=== PATIENT | female | born 1955 | race Caucasian/White ===

== ENCOUNTER 2018-07-28 23:34 | Emergency (ER) | payer OTHER ==
[2018-07-28 23:41] VITALS: BP 165/76; PULSE 99; TEMP 97.7; BMI 22.7
--- NOTE | 2018-07-28 23:57 | PDOC ---
History of Present Illness - General Chief Complaint: Pain Stated Complaint: PAIN CHEST/NECK Time Seen by Provider: 07/28/18 23:36 - History of Present Illness Initial Comments: 07/29/18 00:11 This otherwise healthy(except for osteoporosis) 63-year-old woman presents with few hour history of intermittent, sharp ("stabbing") pain of right and left anterior chest. Pain worse with deep breathing but no sensation of shortness of breath noted. No cough/fever noted. Patient states that she was sitting , watching television during onset. Pain has gradually improved; now, patient breathes shallowly, she no longer has pain. No history of nausea/vomiting, diaphoresis. Also for the last few hours, the patient has had anterior bilateral neck pain, worse with movement of her head. No history of unusual exertion/trauma except for moving some boxes recently. No recent prolonged immobility/recent surgery/history of malignancy/history of thromboembolic disorder Patient noted pruritic, erythematous rash of face/anterior chest/lower abdomen/ scattered on arms and legs 2 nights ago. No history of known insect bites, exposure to plant toxins, ingestion of new food or medication. Patient used [id number] hydrocortisone cream with some improvement over the last day. No history of joint pain or swelling. Cardiac risk factors: No smoking/HTN/DM/family history/hyperlipidemia PMH Osteoporosis Past History - Past Medical History Allergies/Adverse Reactions: Allergies Allergy/AdvReac Type Severity Reaction Status Date / Time No Known Allergies Allergy Unverified 10/02/13 09:50 Home Medications: Ambulatory Orders Cholecalciferol (Vitamin D3) [Vitamin D3] 2,000 unit PO DAILY tablet 12/03/14 Anemia: No Asthma: No Cancer: No Cardiac Disorders: No CVA: No COPD: No CHF: No Dementia: No Diabetes: No GI Disorders: No Disorders: No HTN: No Hypercholesterolemia: No Liver Disease: No Seizures: No Thyroid Disease: No Other medical history: OSTEOPOROSIS - Surgical History Abdominal Surgery: No Appendectomy: No Cardiac Surgery: No Cholecystectomy: No Lung Surgery: No Neurologic Surgery: No Orthopedic Surgery: No - Suicide/Smoking/Psychosocial Hx Smoking History: Former smoker Have you smoked in the past 12 months: No Number of Cigarettes Smoked Daily: 0 If you are a former smoker, when did you quit?: 1969 Information on smoking cessation initiated: No Hx Alcohol Use: Yes Drug/Substance Use Hx: No Substance Use Type: Alcohol Hx Substance Use Treatment: No Review of Systems - Review of Systems Able to Perform ROS?: Yes Comments:: 12 point review of systems is negative except for what is noted in the history of present illness *Physical Exam - Vital Signs Last Vital Signs Temp Pulse Resp BP Pulse Ox 97.7 F 99 H 18 165/76 100 07/28/18 23:36 07/28/18 23:36 07/28/18 23:36 07/28/18 23:36 07/28/18 23:36 - Physical Exam Comments: GENERAL: Adult female, alert and oriented 3, in no acute distress HEAD: Normal with no signs of trauma. EYES: PERRLA, EOMI, sclera anicteric, conjunctiva clear. ENT: Ears normal, nares patent, oropharynx clear without exudates. Dry mucous membranes. NECK: Pain in bilateral sternocleidomastoid muscles with active range of motion , supple without lymphadenopathy, JVD, or masses. LUNGS: Breath sounds equal, clear to auscultation bilaterally. No wheezes, and no crackles. CHEST WALL: No tenderness, crepitus, step off palpated HEART:Regular rate and rhythm, normal S1 and S2 without murmur, rub or gallop. ABDOMEN:.normal bowel sounds No guarding,tenderness or rebound.No masses No distention. EXTREMITIES: Normal range of motion, no edema. No clubbing or cyanosis. No erythema, or tenderness. NEUROLOGICAL: Cranial nerves II through XII grossly intact. Normal speech. No focal neurological deficits. MUSCULOSKELETAL: Back non-tender to palpation, no CVA tenderness SKIN: Erythematous, macular rash of midface, anterior neck, anterior chest, lower abdomen; 3X2cm erythematous area lateral left lower leg 12-lead electrocardiogram is performed and interpreted by me: Normal sinus rhythm at 86 bpm; intervals, wave forms and axis are all normal. No acute ST or T-wave abnormalities; no T wave inversion, no evidence of acute ischemia/ injury. No evidence of arrhythmia Heart Score/ECG Review - History History: Slightly suspicious - Electrocardiogram EKG: Normal - Age Age: 45-65 - Risk Factors Based on the list above the patient has:: No risk factors known - Troponin Troponin: </= normal limit - Score Heart Score - Total: 1 ED Treatment Course - LABORATORY CBC & Chemistry Diagram: 07/29/18 00:01 07/29/18 00:01 Medical Decision Making - Medical Decision Making This 63-year-old woman presents with a history of intermittent, sharp stabbing pains in the anterior chest which began a few hours prior to presentation and has improved significantly prior to ER evaluation. She also has soreness to palpation/movement of the anterior neck muscles for the last few hours. No history of trauma or overuse. She has had macular, erythematous, pruritic rash of her face and neck/anterior chest and scattered extremities for the last 2 days. No fever or other signs of infectious process. Remainder of the exam is normal. Although the patient has no risk factors for coronary artery disease, EKG was taken as noted above. Also, troponin level was sent along with CBC/chemistry profile. Because of the presence of rash and myalgias, ESR/CRP sent. Laboratory evaluation including CBC and chemistry profile essentially normal except for slightly elevated BUN (19) with normal creatinine (0.9%). ESR and CRP are also not elevated (5 and less than 0.3% respectively) Patient given Toradol 30 mg for her myalgias and 25 mg of Benadryl by mouth for her pruritic rash. Patient reports significant relief in her myalgic pain with Toradol and some relief of her pruritus with Benadryl. Although she has no fever or other associated symptoms, the patient may have early viral illness. She may also have a mild ALLERGIC reaction rash not related to her myalgias. Patient should rest, drink plenty of fluids, continue nonsteroidal anti-inflammatory medications and Benadryl as needed. She should follow-up with Dr. Nath within the next several days. Should return to the emergency room if she has worsening of her symptoms *DC/Admit/Observation/Transfer Diagnosis at time of Disposition: Atypical chest pain, Pruritic rash Neck muscle strain Qualifiers: Encounter type: initial encounter Qualified Code(s): S16.1XXA - Strain of muscle, fascia and tendon at neck level, initial encounter - Discharge Dispostion Disposition: HOME Condition at time of disposition: Stable - Referrals - Patient Instructions Printed Discharge Instructions: DI for Atypical Chest Pain Additional Instructions: Acetaminophen/ibuprofen/naproxen as needed for pain Benadryl as needed for itching Return to ER if you have persistent, severe chest pain or shortness of breath Return to ER or see if rash is persistent for more than 5 days Follow-up with Dr. Ortiz in any case within 1 week - Post Discharge Activity
[2018-07-29] MEDS ORDERED: KETOROLAC TROMETHAMINE 30 MG/1 ML VIAL IVPUSH ONE (00:57)
[2018-07-29] MEDS ORDERED: diphenhydrAMINE HCL 25 MG CAPSULE (FP) PO ONE ×2 (00:57→01:00)
[2018-07-29] MEDS ORDERED: KETOROLAC TROMETHAMINE 30 MG/1 ML VIAL ONE (01:00)
[2018-07-29 01:28] LABS: BASO % 0.5 % (0-2.0); EOS % 2.4 % (0-4.5); HEMATOCRIT 41.2 % (32.4-45.2); HEMOGLOBIN 13.9 GM/dL (10.7-15.3); LYMPH % 40.5 % (8-40); MCH 32.3 pg (25.7-33.7); MCHC 33.8 g/dl (32.0-36.0); MEAN CELL VOLUME 95.7 fl (80-96); MEAN PLT VOLUME 8.4 fl (7.5-11.1); NEUT % 49.6 % (42.8-82.8); PLATELET COUNT 226 K/MM3 (134-434); RBC 4.31 M/mm3 (3.60-5.2); RDW 12.8 % (11.6-15.6); WHITE BLOOD COUNT 7.4 K/mm3 (4.0-10.0)
[2018-07-29 02:02] LABS: ALBUMIN 3.7 g/dl (3.4-5.0); ALK PHOS 80 U/L (45-117); ANION GAP 7 MMOL/L (8-16); BILIRUBIN,TOTAL 0.2 mg/dL (0.2-1); BLOOD UREA NITROGEN 19 mg/dL (7-18); CALCIUM 8.7 mg/dL (8.5-10.1); CHLORIDE 105 mmol/L (98-107); CO2 29 mmol/L (21-32); CREATININE 0.9 mg/dL (0.55-1.3); GLUCOSE,RANDOM 140 mg/dL (74-106); POTASSIUM 3.7 mmol/L (3.5-5.1); SGOT/AST 20 U/L (15-37); SGPT/ALT 18 U/L (13-61); SODIUM 141 mmol/L (136-145); TOT PROT 6.7 g/dl (6.4-8.2)
--- NOTE | 2018-07-29 09:33 | EKG ---
Test Reason : Blood Pressure : / mmHG Vent. Rate : 086 BPM Atrial Rate : 086 BPM P-R Int : 140 ms QRS Dur : 084 ms QT Int : 378 ms P-R-T Axes : 029 069 061 degrees QTc Int : 452 ms NORMAL SINUS RHYTHM NORMAL ECG NO PREVIOUS ECGS AVAILABLE Confirmed by CASEY CHEN MD ([id number]) on 07/29/2018 9:32:59 AM Referred By: ALEXEI WALTON Confirmed By:CASEY CHEN MD
== END 2018-07-29 02:29 | disposition home or self-care (01) ==
LOC: FER 23:34
PROC: 3E0333Z Introduction of Anti-inflammatory into Peripheral Vein, Percutaneous Approach (ICD-10-PCS; principal; 2018-07-28)
DX: R07.89 Other chest pain (principal); S16.1XXA Strain of muscle, fascia and tendon at neck level, initial encounter; X58.XXXA Exposure to other specified factors, initial encounter; Y93.9 Activity, unspecified; R21 Rash and other nonspecific skin eruption; Y92.9 Unspecified place or not applicable; L29.9 Pruritus, unspecified; M81.0 Age-related osteoporosis without current pathological fracture; Z87.891 Personal history of nicotine dependence
CPT/HCPCS: 36415; 80053; 82550; 84484; 85025; 85651; 86140; 93005; 99282-25